=== PATIENT | female | born 1985 | race Caucasian/White ===

== ENCOUNTER → 2017-02-26 | Outpatient (CLI) | payer BC ==
[2017-02-26 16:35] LABS: URINE APPEARANCE CLEAR (CLEAR); URINE BILIRUBIN NEG (NEG); URINE COLOR YELLOW; URINE NITRITE NEG (NEG); URINE SPECIFIC GRAVITY 1.016 (1.000-1.030); UROBILINOGEN NEG (NEG)
[2017-02-26 16:41] LABS: MANUAL MICROSCOPIC REQUIRED? NO; REVIEW REQ? NO
== END | disposition home or self-care (01) ==
LOC: C.LABSPEC 16:06
PROVIDERS: ATTEND Obstetrics & Gynecology
DX: O09.291 Supervision of pregnancy with other poor reproductive or obstetric history, first trimester (principal)

== ENCOUNTER → 2017-03-06 | Outpatient (CLI) | payer BC ==
[2017-03-09 00:08] LABS: CHLAMYDIA TRACH RNA*** NOT DETECTED (NOT DETECTED); GC (NEIS GONORRHOEAE)RNA** NOT DETECTED (NOT DETECTED)
== END | disposition home or self-care (01) ==
LOC: C.LABSPEC 13:59
PROVIDERS: ATTEND Obstetrics & Gynecology
DX: O09.291 Supervision of pregnancy with other poor reproductive or obstetric history, first trimester (principal); Z3A.00 Weeks of gestation of pregnancy not specified

== ENCOUNTER → 2017-03-06 | Outpatient (CLI) | payer BC ==
[2017-03-06 13:22] LABS: BASO % 0.4 %; BASO ABS # 0.03 K/uL (0-0.2); COMPLETE YES; EOS % 0.4 %; HEMATOCRIT 42.4 % (37-47); IG% 0.4 %; LYMPH % 25.7 %; LYMPH ABS # 1.93 K/uL (1.2-3.4); MEAN CELL VOLUME 88.7 fL (80-100); MEAN CORPUSCULAR HEMOGLOBIN 30.8 pg (25-34); MEAN CORPUSCULAR HGB CONC 34.7 g/dl (32-36); MEAN PLATELET VOLUME 11.2 fL (7.4-10.4); MONO % 7.9 %; NEUT % 65.2 %; PLATELET COUNT 180 K/uL (130-400); RED BLOOD COUNT 4.78 M/uL (4.2-5.4); WHITE BLOOD COUNT 7.51 K/uL (4.8-10.8)
== END | disposition home or self-care (01) ==
LOC: C.LAB1850 11:40
PROVIDERS: ATTEND Obstetrics & Gynecology
DX: O09.291 Supervision of pregnancy with other poor reproductive or obstetric history, first trimester (principal)

== ENCOUNTER → 2017-04-11 | Outpatient (CLI) | payer BC ==
[2017-04-11 12:56] LABS: GTGD 50 Grams
[2017-04-12 16:28] LABS: AFP CONCENTRATION 39.2 NG/ML; AFP MULTIPLE OF MEDIAN 1.23; AFPTS GESTATIONAL AGE 15.9 WEEKS; AFPTS INSULIN DEP DIABETIC? NO; AFPTS MATERNAL WT 150 LBS; ALPHA-FETOPROTEIN RACE CAUCASIAN=W; HISTORY OF NTD NO; REPEAT SAMPLE? NO
== END | disposition home or self-care (01) ==
LOC: C.LAB1850 11:04
PROVIDERS: ATTEND Obstetrics & Gynecology
DX: O09.291 Supervision of pregnancy with other poor reproductive or obstetric history, first trimester (principal)

== ENCOUNTER → 2017-07-09 | Outpatient (CLI) | payer OTHER ==
[2017-07-09 13:29] LABS: HEMATOCRIT 38.8 % (37-47); HEMOGLOBIN 13.6 g/dL (12.0-16.0)
== END | disposition home or self-care (01) ==
LOC: C.LAB1850 11:24
PROVIDERS: ATTEND Obstetrics & Gynecology
DX: O09.92 Supervision of high risk pregnancy, unspecified, second trimester (principal)

== ENCOUNTER → 2017-08-30 | Outpatient (CLI) | payer OTHER ==
[~2017-08-30] MED LIST: MTR600X PO; PRENTAB26 PO
== END | disposition home or self-care (01) ==
LOC: C.LABSPEC 13:34
PROVIDERS: ATTEND Obstetrics & Gynecology
DX: O09.93 Supervision of high risk pregnancy, unspecified, third trimester (principal); Z3A.00 Weeks of gestation of pregnancy not specified

== ENCOUNTER 2017-09-03 09:38 | Inpatient (IN) | payer OTHER ==
[~2017-09-03] VITALS: Ht 170.2 cm; Wt 78.0 kg
[2017-09-03] MEDS ORDERED: BUPIVACAINE 0.25% 30 ML VIAL ONE (10:03)
[2017-09-03] MEDS ORDERED: FENTANYL CITRATE INJ 50 MCG/1 ML 2 ML VIAL ONE (10:03)
[2017-09-03] MEDS ORDERED: EpHEDrine SULFATE INJ 50 MG/ML AMP ONE (10:03)
[2017-09-03] MEDS ORDERED: FENTANYL 2MCG/ML ROPIV 1.25MG/ML 100ML BAG EPI ONE (10:04)
[2017-09-03 10:14] LABS: HEMATOCRIT 36.8 % (37-47); HEMOGLOBIN 13.3 g/dL (12.0-16.0); MEAN CORPUSCULAR HEMOGLOBIN 32.5 pg (25-34); MEAN CORPUSCULAR HGB CONC 36.1 g/dl (32-36); MEAN PLATELET VOLUME 10.7 fL (7.4-10.4); PLATELET COUNT 153 K/uL (130-400); RED CELL DISTRIBUTION WIDTH CV 12.4 % (11.5-14.5); RED CELL DISTRIBUTION WIDTH SD 40.1 fL (36.4-46.3); WHITE BLOOD COUNT 12.94 K/uL (4.8-10.8)
[2017-09-03 10:51] VITALS: Ht 170.2 cm; Wt 78.0 kg
--- NOTE | 2017-09-03 11:09 | Progress Note ---
Progress Note Date of Service Sep 03, 2017. Progress Note L&D Admission Note H&P (Q-S system is down) CC: regular contractions HPI: Patient is 31yo @ 36 4/7 presents with contractions for the past few days. Contractions have increased today, had bloody show and came to L&D. No gush of fluid. + movement. complicated by chronic hypertension. PMH: HTN since age 9, took meds as a child. Anemia, HPV. PSH: tonsils, wisdom teeth Meds: PNV Allergies: NKDA Soc: denies T/E/D ROS: neg except as above Fam: noncontributory Vitals: BP on arrival 140/90. Repeat 125/73. Vitals otherwise stable. Gen: AAOx3 NAD. Uncomfortable with ctx. CV: RRR S1 S2 L: CTAB Abd: soft, gravid, NTTP. Ext: no edema, no calf tenderness SVE: (per Dr Le) 6/100/bulging membranes FHT: 150s minimal to mod variability, + 1 accel, no decels. [place]: Q 2 min Labs: Rh+/Rubella immune/GBS neg. Infectious disease testing negative. A/P 1. 31yo @ 36 4/7 with labor 2. cHTN - continue to monitor BP, stable at this time Will give IV fluid bolus, continue to watch FHT. Anticipate . Pt to get epidural as soon as anesthesia available.
[2017-09-03] MEDS ORDERED: LACTATED RINGER'S 1000ML 500 ML IV PRN (11:27)
[2017-09-03] MEDS ORDERED: NALOXONE HCL INJ 1 MG in SODIUM CHLORIDE 0.9% 1000ML 1,000 ML IV PRN (11:27)
[2017-09-03] MEDS ORDERED: EpHEDrine SULFATE INJ 50 MG/ML AMP IV PRN (11:30)
[2017-09-03] MEDS ORDERED: FENTANYL 2MCG/ML ROPIV 1.25MG/ML 100ML BAG EPI PRN (11:30)
[2017-09-03] MEDS ORDERED: NALOXONE HCL INJ 0.4 MG/1 ML VIAL/CARP IV PRN (11:30)
[2017-09-03] MEDS ORDERED: ONDANSETRON INJ 2 MG/ML 2 ML VIAL IV PRN (11:30)
[2017-09-03] MEDS ORDERED: DiphenhydrAMINE HCL 50 MG/ML VIAL IV PRN (11:30)
[2017-09-03] MEDS ORDERED: NALBUPHINE HCL INJ 10 MG/ML AMP IV PRN (11:30)
--- NOTE | 2017-09-03 12:28 | Progress Note ---
Progress Note Date of Service Sep 03, 2017. Progress Note Patient comfortable after epidural afvss cx--8-9/90/0 bloody show arom for clear fluid toco--difficult tracing but looks like q2-3 efm--140s with min to mod variability, small accels, no decels a/p--continue expectant management. fetus category two at times but overall reassuring. anticipate .
[2017-09-03] MEDS ORDERED: PRENTAB26 PO (12:46)
[2017-09-03] MEDS ORDERED: DIPHTHERIA/TETANUS/PERTUSSIS 0.5 ML SYR/VIAL IM. ONE (16:30)
[2017-09-03] MEDS ORDERED: SUPERCREAM 0.870 % 15GM JAR EXT PRN (16:30)
[2017-09-03] MEDS ORDERED: OXYCODONE/ACETAMINOPHEN 5-325 TAB PO PRN (16:30)
[2017-09-03] MEDS ORDERED: HYDROCORTISONE ACETATE 25 MG SUPP PR PRN (16:30)
[2017-09-03] MEDS ORDERED: BENZOCAINE 20% AER SPR 82.5 GM CAN EXT PRN (16:30)
[2017-09-03] MEDS ORDERED: IBUPROFEN 600 MG TAB PO PRN (16:30)
[2017-09-03] MEDS ORDERED: ACETAMINOPHEN 325 MG TAB PO PRN (16:30)
[2017-09-03] MEDS ORDERED: LANOLIN OINT EXT PRN (16:30)
[2017-09-03] MEDS ORDERED: OXYTOCIN 30 UNITS/500ML NSS IV PRN (16:30)
[2017-09-03] MEDS ORDERED: MTR600X PO (16:43)
--- NOTE | 2017-09-03 16:49 | Discharge Instructions ---
Discharge Instructions Date of Service Sep 03, 2017. Admission Reason for Admission: Check For Pre Term Labor Discharge Discharge Diagnosis / Problem: S/P Discharge Goals Goal(s): Routine recovery after delivery Medications Continue Dispensed Medications: supercream, dermaplast, tucks, lansinoh Activity Recommendations Activity Limitations: per Instructions/Follow-up section . Instructions / Follow-Up Instructions / Follow-Up ACTIVITY RECOMMENDATIONS: * Gradual return to full activity over the next 2-3 weeks. * No lifting - nothing heavier than baby over the next 2-3 weeks. * Do not engage in vigorous exercise, sexual activity or sports until cleared by your physician. * Do not drive or operate any motorized equipment until cleared by your physician. * You may shower/bathe daily. MEDICATIONS: For discomfort or pain, you may use Acetaminophen (Tylenol), Ibuprofen (Advil), or Naproxen (Aleve) following the package directions. For constipation you may use Colace following the package directions. BREAST CARE: If you are not breast feeding: * Wear a supportive bra 24 hours a day for one to two weeks. * Avoid stimulating your breasts and nipples as much as possible during the first few weeks after delivery. * When taking a shower, have the warm water hit your back, not breasts. * When your breasts feel full, apply ice packs. Usually three to four times a day helps ease the discomfort. * Take a mild pain medication (Tylenol / Motrin) when you are uncomfortable. If breast feeding: * Use breast milk to lubricate nipples. Lansinoh cream may be used for sore nipples. You do not need to remove cream prior to breast feeding. If using a different brand of cream, check the label for directions regarding removal of cream prior to nursing. * Wear a supportive bra. * If having problems with breasts or breast feeding, call a cleaning validation consultant or your health care provider. EPISIOTOMY CARE: After delivery, if you have an episiotomy (stitches), the following steps will ease discomfort and aid healing. * For the first 24 hours after delivery, place ice packs next to your episiotomy to help reduce swelling. * After the first 24 hour-period, sitz baths, either portable or in the tub, are suggested. A shower with a shower arm sprayed over the episiotomy may be comforting. * Sarah care should be done after each voiding and bowel movement. Squirt warm water from a plastic bottle over the perineum (region of the body between the anus and urinary opening) and pat dry. * Use Dermoplast to ease discomfort. Shake container. [place] directly over the episiotomy. Place a Tucks on a clean sanitary pad next to your episiotomy. SPECIAL CARE INSTRUCTIONS: When you are discharged from the hospital, it is important for you to follow the instructions listed below: * During the first week at home, you should be able to care for yourself and your baby. In addition, the usual light household activities are encouraged. * Limit your activities to the way you feel. Do not try to clean the house or move furniture. Be sensible. * If you actively engage in sports and have done so up until the time of your delivery, you may resume these activities as soon as you feel able. This may take up to one month or even longer. Use good judgment. * Continue to take your vitamins for at least six weeks after the of your baby. * Your diet need not be limited unless you were on a special diet before your delivery. Breast-feeding mothers need around 2500 calories per day and at least 64-80 ounces of fluid per day (8 to 10 glasses). * You should eat foods from the four major food groups. Crash diets or fad diets are to be avoided. Eating lean meats, fresh fruits and vegetables, low-fat dairy products, high fiber foods and a regular exercise program, will help you get back to your pre- weight without putting your health at risk. * Constipation is sometimes a problem after delivery. Take a mild laxative as needed. If breast feeding, Milk of Magnesia is acceptable to use. You may use a suppository or Fleets enema if no episiotomy. * A daily shower or tub bath is suggested. Be sure to thoroughly and gently dry the perineum. * A bloody vaginal discharge will usually continue until around four weeks post . A small amount of bleeding may continue for as long as six weeks. Vaginal discharge changes from the bright red bleeding after delivery to pink then brownish and finally yellowish-pink before becoming white and disappearing. * Bleeding may increase with activity. Your first period may come in 4-8 weeks. If you are breast feeding, your period may be delayed even longer. * [place] (sex) can begin whenever both you and your partner feel comfortable and do not have any form of genital infection. It is recommended that you wait at least six weeks for internal and external healing to occur. If you have questions, please talk to your health care practitioner. A condom should be used to prevent infection and . * Foreplay, gentle intercourse and lubrication is very important the first several times to prevent pain. A water-based lubricant such as K-Y jelly or Astroglide may be used. * If you have RH negative blood and your baby is RH positive, you will receive RHOGAM by injection prior to discharge. The nurse will give you a card to keep with you that has the date and place that you received RHOGAM after delivery. * During your care, you had a Rubella screen done to check for the presence of rubella antibodies in your blood. If your test was negative, you will receive a Rubella vaccine prior to discharge. This vaccine may cause a fever, soreness at the injection site and flu-like symptoms. If these symptoms persist, notify your health care practitioner. is not advised for one month after a Rubella vaccine. * Verbalizes understanding of car seat law as reviewed with patient nursing. * Car Seat hand-out given and reviewed with patient by nursing. * Shaken baby information reviewed with patient by nursing. Call you doctor if: * Heavy bleeding (saturating several pads an hour) or passing clots the size of your fist. * A fever >101 degrees F (38.3 degrees C) on two occasions four hours apart and /or chills. * Unusual pain in the pelvic or vaginal areas. * "Baby Blues" lasting longer than two weeks. If you have any questions or concerns, call your health care practitioner at . FOLLOW UP VISIT: * Please call the office at to schedule a 6 week examination. It is important you keep this appointment. It is important for you to make arrangements for either yearly or twice yearly check-ups thereafter. Current Hospital Diet Patient's current hospital diet: Regular OB Diet Discharge Diet Recommended Diet: Regular OB Diet Pending Studies Studies pending at discharge: no Medical Emergencies . Who to Call and When: Medical Emergencies: If at any time you feel your situation is an emergency, please call 911 immediately. . Non-Emergent Contact Non-Emergency issues call your: [employer] Truck [employer] . . "Provider Documentation" section prepared by Georgie Hdz. .
--- NOTE | 2017-09-03 16:54 | DELIVERY SUMMARY ---
DATE OF OPERATION: 09/03/2017 PREOPERATIVE DIAGNOSES: 1. Intrauterine at 36 and 4/7th weeks. 2. Premature onset of labor. POSTOPERATIVE DIAGNOSES: Same. PROCEDURE: 1. Epidural anesthesia. 2. Amniotomy for clear fluid. 3. Spontaneous vaginal delivery. 4. First degree perineal laceration with repair. SURGEON: Dr. Le. MEDICAL OFFICE REP: Georgie Monet, PGY-1. ESTIMATED BLOOD LOSS: 350 mL. ANESTHESIA: Epidural. DESCRIPTION OF PROCEDURE: The patient presented to labor and delivery in early active labor at 36 and 4/7th weeks. She presented at 6-7 cm dilated with bloody show. She was admitted and underwent epidural anesthesia. Once she was comfortable and amniotomy was performed at 8ish cm for clear fluid. She progressed spontaneously to complete complete and +2 station and then pushed effectively to deliver a viable female infant in ROP presentation. There was no nuchal cord. The nose and mouth were bulb suctioned on the perineum and the rest of the infant was then delivered without difficulty. The nose and mouth were again bulb suctioned and the infant was placed on the maternal abdomen for drying and attention. At one minute of life, the cord was clamped and cut and cord blood was obtained. The placenta delivered spontaneously and intact with a 3-vessel cord. Cervix, sulci, and rectum were examined and found to be intact as well as the perineum. A small first degree vaginal laceration was repaired with 3-0 Vicryl in a normal standard fashion. Apgars were 8 and 9. Hemostasis was obtained with dilute Pitocin and fundal massage. Estimated blood loss was 350 mL. Mother and baby doing well at the end of the delivery. I attest to the content of the Intraoperative Record and any orders documented therein. Any exception s are noted below.
--- NOTE | 2017-09-03 19:05 | Anesthesia Procedure Note ---
Anesthesia Epidural Removal Nt Date & Time Sep 03, 2017 at 19:04 Vital Signs Pain Intensity: 1 Notes Mental Status: alert / awake / arousable, participated in evaluation Nausea / Vomiting: adequately controlled Pain: adequately controlled Airway Patency, RR, SpO2: stable & adequate BP & HR: stable & adequate Hydration State: stable & adequate Neuraxial Anesthesia: was administered Anesthetic Complications: no major complications apparent, pt satisfied with anesthetic care Epidural: removed without complications, with tip intact
[2017-09-03 19:40] VITALS: BP 126/87; PULSE 93; TEMP 36.4
[2017-09-03] MEDS: DOCUSATE SODIUM 100 MG CAP PO SCH (21:55)
[2017-09-04 00:05] VITALS: BP 125/82; PULSE 97; TEMP 36.5
[2017-09-04 03:55] VITALS: BP 120/74; PULSE 73; TEMP 36.5
[2017-09-04 07:20] LABS: HEMATOCRIT 35.5 % (37-47); HEMOGLOBIN 12.6 g/dL (12.0-16.0)
[2017-09-04] MEDS: DOCUSATE SODIUM 100 MG CAP PO SCH ×2 (07:37→20:09)
[2017-09-04] MEDS: PRENATAL VITAMIN TAB PO SCH (07:37)
--- NOTE | 2017-09-04 07:37 | Progress Note ---
Subjective Sep 04, 2017. Subjective conversation w/ patient, physical exam, lab review Ambulation: ambulating normally Voiding: no voiding problems Passing Gas: Yes Diet Tolerance: Regular Diet Lochia: Small Feeding Type: Breast Feeding Pain: controlled Objective Vital Signs Date Time Temp Pulse Resp B/P (MAP) Pulse Ox O2 Delivery O2 Flow Rate FiO2 09/04/17 03:55 36.5 73 18 120/74 (89) Room Air 09/04/17 00:05 36.5 97 18 125/82 (96) Room Air 09/04/17 00:05 Room Air 09/03/17 19:40 Room Air 09/03/17 19:40 36.4 93 18 126/87 (100) Room Air Physical Exam General Appearance: WELL-APPEARING, WD/WN, NO APPARENT DISTRESS Abdomen: non tender, soft Fundus: Firm, Non-Tender, Relation to Umbilicus (at u) Extremities: non-tender, normal inspection, no pedal edema, no calf tenderness Laboratory Results Last 24 Hours Test 09/03/17 10:00 09/04/17 06:54 White Blood Count 12.94 K/uL Red Blood Count 4.09 M/uL Hemoglobin 13.3 g/dL 12.6 g/dL Hematocrit 36.8 % 35.5 % Mean Corpuscular Volume 90.0 fL Mean Corpuscular Hemoglobin 32.5 pg Mean Corpuscular Hemoglobin Concent 36.1 g/dl RDW Standard Deviation 40.1 fL RDW Coefficient of Variation 12.4 % Platelet Count 153 K/uL Mean Platelet Volume 10.7 fL Assessment and Plan Post- Day#: 1 Continue Routine Care: Doing well. Routine PP care.
[2017-09-04 08:32] VITALS: BP 127/83; PULSE 80; TEMP 36.3
[2017-09-04 16:00] VITALS: BP 146/84; PULSE 78; TEMP 36.6; O2SAT 97
[2017-09-04 19:05] VITALS: BP 136/81; PULSE 68; TEMP 36.6; O2SAT 96
[2017-09-04 23:30] VITALS: BP 125/78; PULSE 65; TEMP 36.5
--- NOTE | 2017-09-05 07:39 | Progress Note ---
Subjective Sep 05, 2017. Subjective conversation w/ patient, physical exam, chart review, lab review Ambulation: ambulating normally Voiding: no voiding problems Passing Gas: Yes Diet Tolerance: Regular Diet Lochia: Small Feeding Type: Breast Feeding Pain: Minimal pain reported Comment: Pt seen and examined at bedside today. No acute events overnight. Review of Systems Constitutional: No fever, No chills, No sweats, No weight loss, No weakness, No fatigue, No problem reported Respiratory: No cough, No sputum, No wheezing, No shortness of breath, No dyspnea on exertion, No dyspnea at rest, No hemoptysis, No problem reported Cardiac: No chest pain, No orthopnea, No PND, No edema, No claudication, No palpitations, No problem reported Breast: No breast lump, No change in shape, No nipple discharge, No breast pain , No problem reported Abdomen: No pain, No nausea, No vomiting, No diarrhea, No constipation, No GI bleeding, No problem reported Female : No dysuria, No urinary frequency, No hematuria, No incontinence, No abnormal vaginal bleeding, No vaginal discharge, No problem reported no headaches or calf tenderness reported Objective Vital Signs Date Time Temp Pulse Resp B/P (MAP) Pulse Ox O2 Delivery O2 Flow Rate FiO2 09/04/17 23:30 36.5 65 20 125/78 (94) Room Air 09/04/17 23:30 Room Air 09/04/17 19:05 36.6 68 18 136/81 (99) 96 Room Air 09/04/17 16:00 36.6 78 18 146/84 (104) 97 Room Air 09/04/17 16:00 97 Room Air 09/04/17 08:32 36.3 80 20 127/83 (98) Physical Exam General Appearance: WELL-APPEARING, WD/WN, NO APPARENT DISTRESS Respiratory/Chest: chest non-tender, lungs clear, normal breath sounds, no respiratory distress, no accessory muscle use Cardiovascular: regular rate, rhythm, no edema, no murmur Abdomen: normal bowel sounds, non tender, soft Fundus: Firm, Non-Tender, Relation to Umbilicus (2 cm below) Extremities: normal range of motion, non-tender, normal inspection, no pedal edema, no calf tenderness Laboratory Results Last Resulted 09/03/17 10:00 09/04/17 06:54 Medications Current Inpatient Medications Medications (Trade) Dose Ordered Sig/Jojo Route Start Time Stop Time Status Last Admin Dose Admin Oxytocin (Pitocin IV) 30 units UD PRN IV 09/03/17 16:30 10/03/17 16:29 Benzocaine (Dermoplast Aero Spr) 1 appln PRN PRN EXT 09/03/17 16:30 10/03/17 16:29 09/03/17 21:52 82.5 APPLN Cocaine HCl (Supercream 0.870% Cr) BID PRN EXT 09/03/17 16:30 09/17/17 16:29 Hydrocortisone Acetate (Anusol Hc Supp) 25 mg BID PRN IN 09/03/17 16:30 10/03/17 16:29 Lanolin (Lanolin Oint) PRN PRN EXT 09/03/17 16:30 10/03/17 16:29 Prenat Multivit/ [place]/Iron/Folic Ac ( Vitamin Tab) 1 tab DAILY PO 09/04/17 08:00 10/04/17 07:59 09/04/17 07:37 1 TAB Ibuprofen (Motrin Tab) 600 mg Q4H PRN PO 09/03/17 16:30 10/03/17 16:29 Acetaminophen (Tylenol Tab) 650 mg Q6H PRN PO 09/03/17 16:30 10/03/17 16:29 Oxycodone/ Acetaminophen (Percocet 5-325mg Tab) 1 tab Q4H PRN PO 09/03/17 16:30 09/17/17 16:29 Docusate Sodium (coLACE CAP) 100 mg BID PO 09/03/17 20:00 10/03/17 19:59 09/04/17 20:09 100 MG Assessment and Plan Post- Day#: 2 Continue Routine Care: 31 yo F PPD 2 s/p blood type O pos, GBS neg, Rubella immune Pt doing well clinically AFVSS Hb reviewed: 12.6 Continue routine care, encourage ambulation, breast feeding/first mom education on breast feeding Pain control with Rx prn Resident Physician Supervision Note: I interviewed and examined the patient. Discussed with Dr. Hdz and agree with findings and plan as documented in the note. Any exceptions or clarifications are listed here: D/C instruction reviewed, f/u in 6 weeks for check Documented By: Sebastian Morris Resident Tracking Resident Involvement: Resident Care Provided Care Provided: OB Delivery
[2017-09-05 08:00] VITALS: BP 129/84; PULSE 59; TEMP 36.5
[2017-09-05] MEDS: DOCUSATE SODIUM 100 MG CAP PO SCH (09:02)
[2017-09-05] MEDS: PRENATAL VITAMIN TAB PO SCH (09:02)
[2017-09-05 15:30] VITALS: BP 144/88; PULSE 67; TEMP 36.4
[2017-09-05 20:50] VITALS: BP_DIAS 88; PULSE 67; TEMP 36.4
== END 2017-09-05 20:50 | disposition home or self-care (01) | DRG 774 ==
LOC: C.OPB 09:38 → C.LD 09:40 → C.OBG 19:50
PROVIDERS: ADMIT Obstetrics & Gynecology; ATTEND Obstetrics & Gynecology
DX: O60.14X0 Preterm labor third trimester with preterm delivery third trimester, not applicable or unspecified (principal); O10.92 Unspecified pre-existing hypertension complicating childbirth; O70.0 First degree perineal laceration during delivery; Z3A.36 36 weeks gestation of pregnancy; Z37.0 Single live birth

== ENCOUNTER → 2017-10-15 | Outpatient (CLI) | payer OTHER | END | disposition home or self-care (01) | LOC: C.PAPS 14:16 | PROVIDERS: ATTEND Obstetrics & Gynecology | DX: Z12.4 Encounter for screening for malignant neoplasm of cervix (principal) ==

== ENCOUNTER 2019-11-28 07:38 | Inpatient (IN) ==
[2019-11-28] MEDS ORDERED: OXYTOCIN 30 UNITS/500 ML BAG IV PRN ×3 (08:14→19:35)
[2019-11-28 08:33] LABS: Hematocrit (blood only) 37.5 % (37-47); Hemoglobin 13.1 g/dL (12.0-16.0); Mean Corpuscular Hemoglobin 31.6 pg (25-34); Mean Corpuscular Volume 90.4 fL (80-100); Mean Platelet Volume 10.5 fL (7.4-10.4); Platelet Count 136 K/uL (130-400); RDW Coefficient of Variation 13.4 % (11.5-14.5); RDW Standard Deviation 43.6 fL (36.4-46.3); Red Blood Count 4.15 M/uL (4.2-5.4)
[2019-11-28 08:38] LABS: Mean Corpuscular Hgb Conc 34.9 g/dL (32-36)
[2019-11-28] MEDS: LACTATED RINGER'S 1,000 ML IV PRN ×2 (08:53→12:09)
--- NOTE | 2019-11-28 08:59 | History & Physical Report ---
Date of Service November 28, 2019 Assessment & Plan (1) : 34 yo here for induction of labor @ 38 weeks 5 days complicated by chronic hypertension and a history of - admit, IV, labs - continue to augment as needed w/ Pitocin and AROM as needed - SVE: 3 cm, 50%, -2 station, soft, mid position Chronic HTN: - current BP: 131/84 - on ASA Labs: O+, antibody negative, rubella immune, RPR nonreactive, Hep. B negative, HIV negative, G/C not detected. - CF -/SMA/cfDNA/MSAFP - GBS negative Fetus - category 1 - tocometry - inconsistent contractions History of Present Illness Primary Care Provider: NO PCP Mary Johnson is a 34 yo here for induction of labor at 38 weeks 5 days. She has a history of chronic hypertension and a history of with her son at 36 weeks 5 days. She had a cold in July but otherwise has been healthy during this . She has not had any consistent c ontractions. No loss of fluid or bleeding. She does not think that she has lost her mucus plug but has noticed increased discharge. Good movement. Denies fevers, chills, cough, or shortness of breath. She has no sick contacts and has no recent travel. She is having a girl and plans to name her Janki. Allergies Allergy/AdvReac Type Severity Reaction Status Date / Time No Known Drug Allergies Allergy Verified 11/27/19 10:44 Home Medications Home Medications Medication Instructions Recorded Confirmed Type prenat.vits,sidney,vpz-[id number] 1 tab PO DAILY 05/02/19 11/28/19 History aspirin 81 mg PO DAILY 11/28/19 11/28/19 History Patient History Medical History Chronic hypertension in obstetric context in third trimester (Resolved) Encounter for anatomic survey (Inactive) History of anemia History of human papillomavirus infection History of hypertension History of varicella with 36 completed weeks gestation (Resolved) labor in third trimester (Resolved) Surgical History H/O oral surgery S/P tonsillectomy Family History Mother Cardiac arrhythmia Father Hypertension Social History Preferred Language: Luxembour[place] Communication Ability: Effective Weed Control Inspector Required: No Beliefs That Will Affect Care: None marital status: marital status details: Cori Johnson (34) [phone] Current Living Situation: Family Current Living Situation Comment: Lives with and child, no pets current occupational status: employed current occupation: health program analyst Other Information That Helps Us Care for You: No Feels Safe at Home: Yes Safety Concerns: Feels Safe At This Time Smoking Status: Never smoker Second Hand Exposure: No ; Hx Alcohol Use: No Hx Substance Use: No OB History 1 yo boy complicated by delivery at 36 weeks 5 days prior spontaneous [employer] COMPENSATION History Hx. of HPV infection Review of Systems Denies fever, chills, sweats Denies shortness of breath, difficulty breathing, chest pain, palpitations, chest pressure. Denies dysuria. Denies headache, changes in vision, lower extremity swelling Physical Exam Physical Exam: General: Alert, oriented. No acute distress. Cardiac: Regular rate and rhythm, no murmurs/rubs/gallops. Respiratory: Clear to auscultation anterior and posteriorly, no wheezes/rales/rhonchi. No increased work of breathing. Symmetrical chest rise. No respiratory distress. Abdomen: Soft, nontender, nondistended. Bowel sounds present. Uterus: Gravid, vertex Lower Extremities: No lower extremity edema or swelling. No deep calf pain. Jade's negative bilaterally. SVE: 3cm, 50%, -2 station, -2 station, soft, mid Results & Data Vital Signs (Past 12 Hours) Vital Signs Temp Pulse Resp BP 11/28/19 08:12 36.7 C 123 H 16 131/84 11/28/19 07:56 123 H 131/84 Monitoring External Monitor Category 1 tracing - Normal baseline at 150 - no early decelerations, no late decelerations, no variable decelerations Tocodynamometer not raegan at this time Resident Activity Tracking Resident Involvement: Resident Care Provided Care Provided: OB Delivery
[2019-11-28] MEDS ORDERED: ePHEDrine sulfate 50 MG/ML AMP ONE (12:00)
[2019-11-28] MEDS ORDERED: fentaNYL 2MCG/ML ROPIV 1.25MG/ML 100 ML BAG EPI ONE (12:01)
[2019-11-28] MEDS ORDERED: fentaNYL citrate 100 MCG/2 ML VIAL ONE (12:01)
--- NOTE | 2019-11-28 12:37 | Anesthesiology Consultation ---
Date of Service November 28, 2019 Assessment & Plan (1) Encounter for pre-operative examination: Chart Review Chart Review: Patient NOT seen in Pre Admission Testing and Acceptable Risk for Labor Epidural Consults Requested none ASA ASA2 Proposed Anesthesia Anesthesia Type: Labor Epidural Risk / Benefits Reviewed With: PT / POA / Parent / Guardian, Accepts Plan and Informed Consent Obtained History Height/Weight Height: 5 ft 6 in Weight: 79.379 kg Allergies Allergy/AdvReac Type Severity Reaction Status Date / Time No Known Drug Allergies Allergy Verified 11/27/19 10:44 Medications Home Medications Medication Instructions Recorded Confirmed Last Taken prenat.vits,sidney,die-[id number] 1 tab PO DAILY 05/02/19 11/28/19 11/27/19 07:00 aspirin 81 mg PO DAILY 11/28/19 11/28/19 11/26/19 21:00 Active Medications Generic Name Dose Route Start Last Admin Trade Name Freq PRN Reason Stop Dose Admin Lactated Ringer's 1,000 mls @ 125 mls/hr 11/28/19 08:14 11/28/19 12:09 Lr IV 11/30/19 08:13 125 mls/hr .Q8H PRN Administration L&D Protocol Protocol Oxytocin 30 units in 500 mls @ 3 mls/hr 11/28/19 08:16 11/28/19 10:00 Pitocin IV 11/30/19 08:15 0.18 units/hr .Q24H PRN 3 mls/hr Labor Induction/Augmentation Titration Protocol 0.18 UNITS/HR NPO Date Last Intake of Fluids: 11/28/19 Time Last Intake of Fluids: 12:38 Date Last Intake of Solids: 11/28/19 Time Last Intake of Solids: 06:30 Past Medical History Medical History Chronic hypertension in obstetric context in third trimester (Resolved) Encounter for anatomic survey (Inactive) History of anemia History of human papillomavirus infection History of hypertension History of varicella with 36 completed weeks gestation (Resolved) labor in third trimester (Resolved) Exercise / Class Metabolic Activity II 4-5 Yardwork/Stairs/Walk up hill Past Family History Family History Mother Cardiac arrhythmia Father Hypertension Past Surgical History Surgical History H/O oral surgery S/P tonsillectomy Past Anesthesia History No Hx of Anesthesia Complications History of PONV No Hx of PONV Social History Smoking Status: Never smoker Hx Alcohol Use: No Hx Substance Use: No Review of Systems Patient denies history of abnormal bleeding or bleeding disorder. Patient denies active use of anticoagulants other than low dose aspirin. Patient denies numbness, tingling or weakness in lower extremities. Patient denies active symptoms of GERD. Negative for chest pain or shortness of breath. Physical Exam Vital Signs Last Vital Signs Temp 36.8 C 11/28/19 12:08 Pulse 83 11/28/19 12:33 Resp 18 11/28/19 12:08 BP 125/84 11/28/19 12:08 Pulse Ox 100 11/28/19 12:33 Constitutional not obese (Gravid uterus) ENMT Mouth: no TMJ abnormality and oral opening not small Thyromental Distance: > or= 3.5 Finger Breadths Mallampati Class: II Neck normal visual inspection; neck extension not limited Respiratory normal respiratory effort Auscultation: lungs clear to auscultation bilaterally Cardiovascular Rate/Rhythm: regular rate and regular rhythm Heart Sounds: no murmur Neurologic moves all extremities Motor/Sensory: no sensory deficit Psychiatric Orientation: alert and oriented x 3 Testing Laboratory Results 11/28/19 08:22
[2019-11-28] MEDS: BUPIVACAINE 0.25% 30 ML VIAL ONE ×2 (13:01→15:47)
[2019-11-28] MEDS ORDERED: NALOXONE HCL 0.4 MG/1 ML VIAL/CARP IV PRN (13:10)
[2019-11-28] MEDS ORDERED: DiphenhydrAMINE HCL 50 MG/ML VIAL IV PRN (13:10)
[2019-11-28] MEDS ORDERED: ePHEDrine sulfate 50 MG/ML AMP IV PRN (13:10)
[2019-11-28] MEDS ORDERED: NALBUPHINE HCL INJ 10 MG/ML AMP IV PRN (13:10)
[2019-11-28] MEDS ORDERED: NALOXONE HCL 1 MG in SODIUM CHLORIDE 0.9% 1000ML 1,000 ML IV PRN (13:10)
[2019-11-28] MEDS ORDERED: ONDANSETRON INJ 2 MG/ML 2 ML VIAL IV PRN (13:10)
[2019-11-28] MEDS ORDERED: fentaNYL 2MCG/ML ROPIV 1.25MG/ML 100 ML BAG EPI PRN (13:10)
--- NOTE | 2019-11-28 19:04 | Anesthesia Procedure Note ---
Date of Service November 28, 2019 Anesthesia Post Epidural Note Vital Signs Vital Signs: Temp Pulse Resp BP Pulse Ox 36.8 C 106 H 18 137/89 98 11/28/19 15:44 11/28/19 19:01 11/28/19 17:43 11/28/19 19:01 11/28/19 18:43 Notes Mental Status: alert / awake / arousable and participated in evaluation Nausea / Vomiting: adequately controlled Pain: adequately controlled Airway Patency, RR, SpO2: stable & adequate BP & HR: stable & adequate Hydration State: stable & adequate Neuraxial Anesthesia: was administered and sensory block is resolving Anesthetic Complications: no major complications apparent and Pt Satisfied with anesthetic care Epidural: Removed without complications and With tip intact Notes: Epidural site clean, dry and intact. No signs of edema, erythema or bruising at insertion site. Pt instructed to request anesthesia if she has residual lower extremity numbness or if she develops lower extremity pain or weakness, back pain or headache.
[2019-11-28] MEDS ORDERED: bisacodyL 10 MG SUPP PR PRN (19:35)
[2019-11-28] MEDS ORDERED: HYDROCORTISONE ACETATE 25 MG SUPP PR PRN (19:35)
[2019-11-28] MEDS ORDERED: BENZOCAINE 20% AER SPR 82.5 GM CAN EXT PRN (19:35)
[2019-11-28] MEDS ORDERED: ACETAMINOPHEN 325 MG TAB PO PRN (19:35)
[2019-11-28] MEDS ORDERED: SUPERCREAM 0.870% 15 GM JAR EXT PRN (19:35)
[2019-11-28] MEDS: DOCUSATE SODIUM 100 MG CAP PO SCH (20:29)
--- NOTE | 2019-11-29 05:18 | Delivery Summary ---
DATE OF OPERATION: 11/28/2019 PROCEDURE: Normal spontaneous vaginal delivery. SURGEON: Abelardo Eng MD PREOPERATIVE DIAGNOSES: 1. Single viable at 38 weeks 5 days gestational age. 2. Chronic hypertension. 3. Advanced maternal age. 4. Prior history of delivery. POSTOPERATIVE DIAGNOSES: 1. Single viable at 38 weeks 5 days gestational age. 2. Chronic hypertension. 3. Advanced maternal age. 4. Prior history of delivery. 5. Status post delivery. ESTIMATED BLOOD LOSS: 200 mL. DRAINS: None. FLUIDS: Continuous lactated Ringer. URINE OUTPUT: Not measured. COMPLICATIONS: None. FINDINGS: Viable female with weight pending and Apgars of 8 and 9 at 1 and 5 minutes respectively. DESCRIPTION OF PROCEDURE: The patient progressed to 10 cm dilated, 100% effaced, +2 station. She pushed over intact perineum with epidural anesthesia over approximately 4 pushes to achieve delivery. Head of the delivered in LASHA position, rest into right transverse. No nuchal cord was noted. Body and shoulders quickly followed. was noted to be vigorous soon after delivery and 1-minute delayed cord clamping was initiated. The cord was then double clamped and cut. The cord blood was then obtained. Attention was then turned to delivery of the placenta, which was delivered intact, 3-vessel cord with gentle cord traction. On inspection of the perineum, vagina, and cervix, there were noted to be no lacerations. Sponge and instrument counts were correct at the completion of the case. Both mother and were stable in the immediate post-delivery period. I attest to the content of the Intraoperative Record and any orders documented therein. Any exception s are noted below.
--- NOTE | 2019-11-29 05:58 | Obstetrical Progress Note ---
Date of Service November 29, 2019 Assessment & Plan (1) : 34 yo s/p VD @ 38 weeks 5 days complicated by AMA, chronic hypertension and a history of - PPD# 1 - GBS -, Blood Type O+ - Feels well today. Eating well, voiding well, ambulating well. - Pain well controlled. - Routine post care - After discharge will have [address] Eng. Admission and Anticipated Discharge Date Admission Date: November 28, 2019 Supervising Physician Co-Signing Physician Notes Patient seen and evaluated and agree with the above findings and plan. Doing well. Stable for discharge pending discharge of baby Subjective Doing well this morning she has been walking, eating, passing gas. She states her bleeding is, "good" and is going through a pad every 2-3 hours.. She is and this is going well. Review of Systems Review of Systems: Denies fever, chills, sweats Denies shortness of breath, difficulty breathing, chest pain, palpitations, chest pressure. Denies dysuria. Denies headache, changes in vision, lower extremity swelling Physical Exam Physical Exam: General: Alert, oriented. No acute distress. Cardiac: Regular rate and rhythm, no murmurs/rubs/gallops. Respiratory: Clear to auscultation anterior and posteriorly, no wheezes/rales/rhonchi. No increased work of breathing. Symmetrical chest rise. No respiratory distress. Abdomen: Soft, nontender, nondistended. Bowel sounds present. Uterus: Uterine fundus firm, palpable 1 cm below umbilicus. Lower Extremities: No lower extremity edema or swelling. No deep calf pain. Jade's negative bilaterally. Results & Data ([facility]) Vital Signs (Past 12 Hours) Vital Signs Temp Pulse Resp BP Pulse Ox 11/29/19 04:25 36.5 C 72 18 118/80 11/28/19 23:25 36.7 C 85 18 109/69 11/28/19 20:46 100 H 115/63 11/28/19 20:31 96 H 18 127/64 11/28/19 20:17 100 H 134/62 11/28/19 20:01 106 H 18 139/78 11/28/19 19:46 93 H 18 134/76 11/28/19 19:31 100 H 18 131/81 11/28/19 19:16 100 H 18 141/90 H 11/28/19 19:01 36.9 C 106 H 18 137/89 11/28/19 18:51 86 142/107 H 11/28/19 18:46 113 H 143/112 H 11/28/19 18:43 115 H 24 98 11/28/19 18:38 124 H 100 11/28/19 18:33 92 H 99 11/28/19 18:32 84 153/87 H 11/28/19 18:28 87 98 11/28/19 18:23 85 97 11/28/19 18:18 73 98 11/28/19 18:16 75 133/82 11/28/19 18:13 70 98 11/28/19 18:11 76 138/77 11/28/19 18:08 73 99 11/28/19 18:03 77 99 11/28/19 17:58 84 100 Resident Activity Tracking Resident Involvement: Resident Care Provided Care Provided: OB Delivery
[2019-11-29] MEDS: IBUPROFEN 600 MG TAB PO PRN ×2 (06:44→19:47)
[2019-11-29 06:57] LABS: Hematocrit (blood only) 37.5 % (37-47); Hemoglobin 12.9 g/dL (12.0-16.0)
[2019-11-29] MEDS ORDERED: FERROUS SULFATE 325 MG TAB PO SCH (08:00)
[2019-11-29] MEDS ORDERED: PRENATAL VITAMIN 1 TAB PO SCH (08:00)
[2019-11-29] MEDS: DOCUSATE SODIUM 100 MG CAP PO SCH (08:27)
[2019-11-29] MEDS ORDERED: DIPHTHERIA/TETANUS/PERTUSSIS 0.5 ML SYR/VIAL IM ONE (09:00)
[2019-11-29] MEDS ORDERED: bisacodyL 5 MG TABEC PO SCH (20:00)
== END 2019-11-29 21:00 | disposition home or self-care (01) | DRG 807 ==
LOC: 4S1 07:38 → 4S2 21:18